=== PATIENT | female | born 1980 | race Caucasian/White ===

== ENCOUNTER 2021-11-25 12:04 | Emergency (ER) | payer BC, MEDICAID | END 2021-11-25 13:31 | disposition home or self-care (01) | LOC: JP.ED 12:04 | DX: K50.90 Crohn's disease, unspecified, without complications (principal); Z88.8 Allergy status to other drugs, medicaments and biological substances; Z79.899 Other long term (current) drug therapy | CPT/HCPCS: 99283 ==